=== PATIENT | female | born 1950 | race Caucasian/White ===

== ENCOUNTER 2018-12-28 06:38 | Inpatient (IN) ==
--- NOTE | 2018-11-29 10:36 | PAT Medication Instructions ---
Medication Instructions Date of Service November 29, 2018 Home Medications amoxicillin 2,000 mg PO NEEDED cholecalciferol (vitamin D3) [Vitamin D3] 5,000 unit PO QAM estradiol 1 mg PO QAM glucosamine-chondroitin [Osteo Bi-Flex] 1 tab PO QAM hydrochlorothiazide 12.5 mg PO QAM levothyroxine 50 mcg PO QAM naproxen sodium [Aleve] 220 mg PO BID NEEDED sumatriptan succinate 100 mg PO NEEDED tramadol 50 mg PO Q6H NEEDED Continue as directed amoxicillin 2,000 mg PO NEEDED ASK your surgeon for instructions naproxen sodium [Aleve] 220 mg PO BID NEEDED STOP taking 2 weeks before surgery glucosamine-chondroitin [Osteo Bi-Flex] 1 tab PO QAM DO NOT take the morning of surgery cholecalciferol (vitamin D3) [Vitamin D3] 5,000 unit PO QAM hydrochlorothiazide 12.5 mg PO QAM sumatriptan succinate 100 mg PO NEEDED estradiol 1 mg PO QAM Take morning of surgery With a small sip of water, OTHERWISE NOTHING TO EAT OR DRINK AFTER MIDNIGHT: levothyroxine 50 mcg PO QAM tramadol 50 mg PO Q6H NEEDED (if needed; stop 4 hours before surgery) Take evening before surgery tramadol 50 mg PO Q6H NEEDED (if needed) Other Notes If you have any questions please call us at [phone] or [phone] or [phone] or [phone]
--- NOTE | 2018-11-29 10:41 | Anesthesiology Consultation ---
Date of Service November 29, 2018 Assessment & Plan (1) Encounter for pre-operative examination: - No previous anesthesia records Chart Review Chart Review: Acceptable Risk for Surgery and Patient seen in Pre Admission Testing Consults Requested medical (Dr. Jeanmarie Hernádnez (12/08)) Patient was seen by PCPs office on 12/08 for preoperative evaluation. Per note from that visit, "Proceed with surgery." "Pt medically cleared." Teaching & Discussion Pre-Anesthesia Teaching/Discussion Notes: Instructed NPO after midnight before surgery, except medications with 15 cc of water. Medication instructions provided according to the PAT guidelines. History Surgery Operation Date: 12/28/18 12:40 Proposed Procedures p Left Total Hip Arthroplasty - Anthony Yap MD Height/Weight Height: 5 ft 1 in Weight: 60.4 kg Allergies Allergy/AdvReac Type Severity Reaction Status Date / Time omeprazole Allergy Intermediate ITCHING Verified 11/22/18 11:15 prochlorperazine Allergy Unknown JAW LOCKED Unverified 11/22/18 11:14 Medications Home Medications Medication Instructions Recorded Confirmed Last Taken amoxicillin 2,000 mg PO UD PRN 11/22/18 11/22/18 Unknown cholecalciferol (vitamin D3) 5,000 unit PO QAM 11/22/18 11/22/18 Unknown [Vitamin D3] estradiol 1 mg PO QAM 11/22/18 11/22/18 Unknown glucosamine-chondroitin [Osteo 1 tab PO QAM 11/22/18 11/22/18 Unknown Bi-Flex] hydrochlorothiazide 12.5 mg PO QAM 11/22/18 11/22/18 Unknown levothyroxine 50 mcg PO QAM 11/22/18 11/22/18 Unknown naproxen sodium [Aleve] 220 mg PO BID PRN 11/22/18 11/22/18 Unknown sumatriptan succinate 100 mg PO UD PRN 11/22/18 11/22/18 Unknown tramadol 50 mg PO Q6H PRN 11/22/18 11/22/18 Unknown Past Medical History Medical History Cataracts, bilateral Hearing deficit Hypothyroidism Migraine Osteoarthritis Exercise / Class Metabolic Activity II 4-5 Yardwork/Stairs/Walk up hill (Walks dog at least 1 mile per day. Otherwise limited due to knee pain. Able to climb stairs if needed. Denies CP or SOB with activity. ) Past Surgical History Surgical History H/O left knee surgery REMOVAL OF KNEE CAP History of cardiac cath 2003 NO STENTS History of section 1971&1974 History of colonoscopy History of tonsillectomy History of total hip arthroplasty RIGHT S/P RANDOLPH-BSO Past Anesthesia History No Hx of Anesthesia Complications and No Family Hx of Anesthesia Complications History of PONV No Hx of Motion Sickness and History of PONV (Did have nausea and vomiting the d ay after hip replacement (thought to be due to panic attack)) Social History Smoking Status: Never smoker Do You Dip or Chew Tobacco: No Hx Alcohol Use: Yes alcohol intake frequency: holidays/special occasions only Hx Substance Use: No substance use type: does not use Review of Systems Patient denies chest pain, shortness of breath, dyspnea on exertion, reflux, cough, wheezing, palpitations. +Joint Pain (Hips, Hands) Physical Exam Vital Signs BP: 151/81 P: 71 R: 18 T: 97.6 SPO2: 97% on RA ENMT Thyromental Distance: > or= 3.5 Finger Breadths (3.5) Mallampati Class: I Neck normal visual inspection and trachea midline; neck extension not limited Respiratory normal respiratory effort Auscultation: lungs clear to auscultation bilaterally Cardiovascular Rate/Rhythm: regular rate and regular rhythm Heart Sounds: no murmur Vessels: no carotid bruit Neurologic moves all extremities Psychiatric Orientation: alert and oriented x 3 Testing Laboratory Results 11/29/18 11:23 11/29/18 11:23 PT 10.5 Seconds (9.0-12.0) 11/29/18 11:23 INR 1.0 (0.9-1.1) 11/29/18 11:23 APTT 26.8 Seconds (21.0-31.0) 11/29/18 11:23 Hemoglobin A1c 5.5 % (4.5-5.6) 11/29/18 11:23 Urine Color Yellow 11/29/18 11:23 Urine Appearance Clear (Clear) 11/29/18 11:23 Urine pH 6.0 (4.5-7.5) 11/29/18 11:23 Ur Specific [place] 1.016 (1.000-1.030) 11/29/18 11:23 Urine Protein Negative (Negative) 11/29/18 11:23 Urine Glucose (UA) Negative (Negative) 11/29/18 11:23 Urine Ketones Negative (Negative) 11/29/18 11:23 Urine Nitrite Negative (Negative) 11/29/18 11:23 Ur Leukocyte Esterase Negative (Negative) 11/29/18 11:23 Blood Type O Positive 11/29/18 11:23 Antibody Screen NEGATIVE 11/29/18 11:23 Electrocardiogram Date: 11/29/18 Findings: + NSR @ (68) and + no change from (12/08/08) Chest X-Ray Date: 11/29/18 Findings: + NAD
--- NOTE | 2018-11-29 11:56 | XRay Report ---
XR chest Pre-admission PA/Lat CLINICAL HISTORY: Preoperative chest COMPARISON STUDY: No previous studies for comparison. FINDINGS: The cardiac and mediastinal contours are normal. There is no evidence of focal pulmonary co nsolidation. There is no evidence of failure. No pleural effusions are visualized.[ IMPRESSION: No active disease in the chest. Electronically signed by: Geovanni Weeks M.D. 11/29/2018 11:54 AM
[2018-11-29 12:38] LABS: Basophils # (auto) 0.03 K/uL (0-0.2); Basophils % (auto) 0.3 %; Eosinophils # (auto) 0.19 K/uL (0-0.5); Eosinophils % (auto) 2.1 %; Hematocrit (blood only) 38.8 % (37-47); Hemoglobin 13.4 g/dL (12.0-16.0); Immature Granulocytes # (auto) 0.02 K/uL (0.00-0.02); Immature Granulocytes % (auto) 0.2 %; Lymphocytes # (auto) 2.86 K/uL (1.2-3.4); Lymphocytes % (auto) 32.2 %; Mean Corpuscular Hgb Conc 34.5 g/dL (32-36); Mean Corpuscular Volume 89.6 fL (80-100); Mean Platelet Volume 10.1 fL (7.4-10.4); Monocytes # (auto) 0.53 K/uL (0.11-0.59); Neutrophils # (auto) 5.25 K/uL (1.4-6.5); Neutrophils % (auto) 59.2 %; Platelet Count 325 K/uL (130-400); RDW Coefficient of Variation 12.6 % (11.5-14.5); RDW Standard Deviation 41.2 fL (36.4-46.3); Red Blood Count 4.33 M/uL (4.2-5.4); White Blood Count 8.88 K/uL (4.8-10.8)
[2018-11-29 12:49] LABS: Partial Thromboplastin Time 26.8 Seconds (21.0-31.0); Prothrombin Time 10.5 Seconds (9.0-12.0)
[2018-11-29 13:04] LABS: Estimated Average Glucose 111 mg/dl; Hemoglobin A1C 5.5 % (4.5-5.6)
[2018-11-29 13:09] LABS: Appearance Urine Clear (Clear); Bilirubin Urine Negative (Negative); Blood Urine Negative (Negative); Color Urine Yellow; Glucose Urine UA Negative (Negative); Ketones Urine Negative (Negative); Leukocyte Esterase Urine Negative (Negative); Nitrite Urine Negative (Negative); Protein Urine Negative (Negative); Specific Gravity Urine 1.016 (1.000-1.030); Urobilinogen Urine Negative (Negative)
[2018-11-29 17:08] LABS: Albumin Level 3.6 gm/dl (3.4-5.0); BUN Creatinine Ratio 26.7 (10-20); Calcium 9.1 mg/dl (8.5-10.1); Est GFR (African American) 104.7; Est GFR (Non-African American) 90.3; Potassium 3.4 mmol/L (3.5-5.1)
--- NOTE | 2018-12-27 21:50 | History and Physical Report ---
DATE OF ADMISSION: 12/28/2018 CHIEF COMPLAINT: Chronic left hip pain. HISTORY OF PRESENT ILLNESS: This is a 68-year-old female patient of Dr. Yap'johnnie complaining of chronic left hip pain, longstanding, now progressively getting worse. The patient has failed conservative treatment including anti-inflammatories, tramadol, the use of a home exercise program and the use of a cane. She has been diagnosed with end-stage osteoarthritis per clinical and radiographic exams. She wished to proceed with a left total hip arthroplasty. PAST MEDICAL HISTORY: Hypothyroidism, osteoarthritis. SOCIAL HISTORY: Nonsmoker, nondrinker. PAST SURGICAL HISTORY: Right hip replacement, hysterectomy, left knee surgery, and tonsillectomy. FAMILY HISTORY: Noncontributory. REVIEW OF SYSTEMS: Chronic left hip pain. Otherwise, denies any shortness of breath, chest pain, nausea, vomiting or any other joint complaints. MEDICATIONS: 1. Synthroid 50 mcg daily. 2. Estradiol 1 mg daily. 3. Vitamin D3 5000 units daily. 4. Amoxicillin 500 mg before dental procedures. 5. Osteo Bi-Flex daily. 6. Sumatriptan 100 mg as needed. 7. Hydrochlorothiazide 12.5 mg daily. ALLERGIES: Include COMPAZINE. PHYSICAL EXAMINATION: GENERAL: Well-developed, well-nourished 68-year-old female in no acute distress. She is alert and oriented x3 and pleasant. HEENT: Normocephalic, atraumatic. Extraocular motions are intact. Pupils are equal and reactive to light. HEART: Regular rate and rhythm, no murmurs. LUNGS: Clear. ABDOMEN: Soft, nontender, bowel sounds present. EXTREMITIES: Left hip has pain with passive range of motion with log rolling and at 90 degrees of flexion. She has no hip flexion contracture. Her strength is 5/5 with pain. NEUROLOGIC: Neurovascularly, she is intact in her left lower extremity. DIAGNOSES: Left hip end-stage osteoarthritis with a history of hypothyroidism and osteoarthritis. PLAN: The patient was advised of her diagnosis. Indications, risks, benefits, postop course have all been reviewed. The patient wished to proceed with a left total hip arthroplasty. Necessary consent forms, preoperative testing and clearances will be obtained.
[~2018-12-28 06:38] MED LIST: ACETAMINOPHEN 500 MG TAB PO SCH; BUPIVACAINE 0.5 % 5 MG/1 ML PF 10ML VIAL ONE; CEFAZOLIN 1000MG 1,000 MG/7.5 ML SYR IV SCH; CeleBREX 200 MG CAP PO SCH; FAMOTIDINE 20 MG TAB PO SCH; GABAPENTIN 300 MG CAP PO SCH; LR 500ML BOLUS, THEN 15ML/HR IV SCH; METOCLOPRAMIDE HCL 10 MG TABLET PO SCH; ROPIVACAINE 0.5% HCL/PF 150 MG, BUPIVACAINE 0.5% MPF 30 ML, EPINEPHrine 30MG/30ML (OR U... INSTIL SCH; TRANEXAMIC ACID 1,000 MG **IV Intra-op IV SCH; TRANEXAMIC ACID 1,000 MG **IV Pre-op IV SCH; dexAMETHasone 4 MG TAB PO SCH
[2018-12-28] MEDS ORDERED: BACITRACIN INJ 50,000 UNIT VIAL ONE (06:59)
[2018-12-28] MEDS ORDERED: ORTHO JOINT ANESTHETIC ONE (06:59)
--- NOTE | 2018-12-28 07:13 | History & Physical Bridge Note ---
Date of Service December 28, 2018 History & Physical Bridge Note I have examined the patient, reviewed the History & Physical and in the interval since the performance of the History & Physical I have noted the following changes of clinical significance: no changes noted
[2018-12-28] MEDS ORDERED: ONDANSETRON INJ 2 MG/ML 2 ML VIAL ONE ×2 (07:16→08:37)
[2018-12-28] MEDS ORDERED: PROPOFOL IV EMULSION 10 MG/ML 20 ML VIAL IV ONE ×2 (07:16→10:57)
[2018-12-28] MEDS ORDERED: LIDOCAINE HCL 2% 2 ML VIAL/AMP(20MG/ML) INFIL ONE (07:16)
[2018-12-28] MEDS ORDERED: DEXAMETHASONE SOD INJ 4 MG/ML VIAL ONE (07:16)
[2018-12-28] MEDS ORDERED: MIDAZOLAM HCL 1 MG/ML 2ML VIAL ONE (07:17)
[2018-12-28] MEDS ORDERED: fentaNYL citrate 100 MCG/2 ML VIAL ONE (07:17)
[2018-12-28] MEDS ORDERED: HYDROmorphone INJ 1 MG/ML SYRINGE IV PRN (09:36)
[2018-12-28] MEDS ORDERED: FLUMAZENIL 0.1 MG/1 ML 10 ML VIAL IV PRN (09:36)
[2018-12-28] MEDS ORDERED: ATROPINE SULFATE 0.1 MG/ML 10ML SYR IV PRN (09:36)
[2018-12-28] MEDS ORDERED: ePHEDrine sulfate 50 MG/ML AMP IV PRN (09:36)
[2018-12-28] MEDS ORDERED: LABETALOL HCL IV 5 MG/ML 20ML IV PRN (09:36)
[2018-12-28] MEDS ORDERED: PROMETHAZINE HCL 12.5 MG in SODIUM CHLORIDE 0.9% 50 ML IV PRN (09:36)
[2018-12-28] MEDS ORDERED: NALOXONE HCL 0.4 MG/1 ML VIAL/CARP IV PRN ×2 (09:36→12:56)
[2018-12-28] MEDS ORDERED: ONDANSETRON INJ 2 MG/ML 2 ML VIAL IV PRN ×2 (09:36→12:56)
--- NOTE | 2018-12-28 11:29 | Operative Report ---
Post Operative Report Pre & Post Diagnosis Operation Date: 12/28/18 09:00 Pre-Op Diagnosis: Left Hip End-Stage Osteoarthritis Post-Op Diagnosis: Left Hip End-Stage Osteoarthritis, acetabular cysts, hypertrophic acetabular labral tear Procedure Operation Date: 12/28/18 09:00 Actual Procedures p Left Total Hip Arthroplasty(Left) - Anthony Yap MD Surgeon Anthony Yap MD C 40A Crew Chief Gal DEAN Estimated Blood Loss 100 Findings Consistent with Post-Op Diagnosis Specimens Femoral head Drains 2 Hemovac Anesthesia Type Spinal MAC Complications none Disposition Accompanied Patient To Recovery: No Disposition: Recovery Room Indications 68-year-old female with progressive osteoarthritis her left hip and failed conservative management. Radiograph symmetry she has progressive arthritis with joint space narrowing not completely [id number] but she has large cysts in the femoral head and the acetabulum and she is failed to manage pain with conservative management options. Patient had a prior right hip replacement in the past. Description of Procedure Patient taken to the operating room and anesthetized under spinal anesthesia and sedation. Patient was placed supine on the operating table. Exam of the involved extremity demonstrated she had flexion to about 100 degrees and some decreased range of motion with internal rotation and had moderate fat collection over the lateral hip..The patient was placed on a sacral pad and the involved leg was placed on a foot bump to flex knee 90 and hip 60. A Kothari-type approach was performed to the hip. A longitudinal lateral incision was made over the hip. The skin was incised sharply. The fat was divided down to the fascia. Subcutaneous bleeders are cauterized. Trochanteric bursa was resected. A split was made in the gluteus medius muscle between the anterior 40% and posterior 60%. The minimus was divided longitudinally reflected off the underly ing capsule. The capsule was incised down to the hip joint. An incision was made through the gluteus medius leaving a cuff of tendon for repair on the greater trochanter. The vastus lateralis was split longitudinally for about 3 cm. A muscular capsular flap was elevated off the hip. The hip was dislocated with use of bone hook and with flexion and external rotation of the hip. The femoral neck cut was made approximately 15 mm proximal to the lesser trochanter in neutral anteversion. Head and neck fragment were removed. The femoral head demonstrated mostly grade 3 osteoarthritis with smaller osteophytes. There was more articular thinning and wear in the superior head.. A self-retaining superior tractor was impacted into the ilium, a blunt Bessie retractor was placed anteriorly a double angled inferior retractor was placed on the ischium. The acetabulum demonstrated grade 4 degenerative arthritis with subchondral cysts and superior acetabulum and a large hypertrophic acetabular labrum with degenerative tearing. There was some posterior superior osteophytes.. The acetabular labrum was resected all osteophytes were resected.The soft tissue in the acetabular fossa was resected. An anterior capsular release was performed. Some the capsule was resected for exposure. The first reamer was used to medialize reaming to the inner table and then sequential reamers for the luigi tabulum were used in 2 mm increments up to a size 48. I used the Pinger total hip arthroplasty system using a PSL type cup. Trial reduction demonstrated a 48 millimeter cup was the appropriate size and fit. The placement of the final implant was performed after irrigating the acetabulum with antibiotic solution with pulsatile lavage. The position of the cup was approximately 15 anteversion 45 abduction. Good fixation was performed. Two 6.5 mm cancellus screws were placed in the posterior superior quadrant for further fixation through the cup. The acetabular liner was impacted into position. The Trident X3 0 degree polyethylene insert 36 mm inner diameter D acetabular liner was used.The Orthomix coctail injected into the capsule around the acetabular component and deeper muscles. The retractors removed and attention was taken to the femur. The femur was exposed with flexion external rotation. A Canal reamer was used followed by sequential tapered Accolade 2 broaches up to a size 3. This had a good fit and fill. Trial reduction was performed with a 132 degree neck angle based on preoperative templating. A -2.5 neck length gave equal leg lengths and stable range of motion through full flexion flexion adduction and internal rotation and extension and external rotation. The trials removed and after irrigation again and the final implant was impacted which was the Accolade 2 size three 132 degree neck angle. The Biolox ceramic head size 36-2.5 was used. After final implants replaced the reduction was noted to be stable. Betadine soak was used per protocol. 2 drains were placed deep. These were brought out laterally and connected to Hemovac. The minimus was closed with interrupted [id number] #1 Vicryl sutures and one transosseous #5 FiberWire Carlitos-Lc suture. The medius was closed with transosseous #5 FiberWire sutures using Carliots Lc suture technique. Lateral row soft tissue repair was performed with figure of 8 #2 FiberWire sutures. The medius split was closed with interrupted [id number] #1 Vicryl sutures. The vastus lateralis was closed with interrupted figure of eight #1Vicryl sutures. The fascia lai was closed with interrupted figure of eight #1 Vicryl sutures. The fat was closed with [id number] #2 Vicryl sutures. Skin was closed with heydi and sterile dressings were applied. The patient tolerated procedure well. Gal DEAN my physician casting assistant assisted me in the procedure with patient positioning And draping soft tissue retraction instrument management suture management and assisted in the outer layer closure and will participate in the postoperative care the patient. I attest to the content of the Intraoperative Record and any orders documented therein. Any exceptions are noted below.
--- NOTE | 2018-12-28 12:08 | Anesthesiology Progress Note ---
Date of Service December 28, 2018 Anesthesia Post Procedure Vital Signs Vital Signs: Temp Pulse Pulse Resp BP Pulse Ox 12/28/18 12:00 77 18 101/61 96 12/28/18 11:50 78 15 105/66 97 12/28/18 11:42 36.2 C L 79 14 102/67 97 12/28/18 07:08 36.4 C L 89 16 181/109 H 99 Pain Intensity Left Hip: Pain Intensity: 0 Transfer of Care Handoff Completed per policy Notes Mental Status: alert / awake / arousable Patient Amnestic to Procedure: Yes Nausea / Vomiting: adequately controlled Pain: adequately controlled Airway Patency, RR, SpO2: stable & adequate BP & HR: stable & adequate Hydration State: stable & adequate Neuraxial Anesthesia: was administered and sensory block is resolving Anesthetic Complications: no major complications apparent
--- NOTE | 2018-12-28 12:20 | XRay Report ---
XR hip 1V LT w pelvis CLINICAL HISTORY: IN PACU - A/P PELVIS and LATERAL HIP hip replacement COMPARISON: None. DISCUSSION: Anatomic alignment posttotal left hip arthroplasty. Pre-existing total right hip arthropl asty. Expected soft tissue postoperative change. IMPRESSION: Anatomic alignment posttotal left hip arthroplasty. The above report was generated using voice recognition software. It may contain grammatical, syntax or spelling errors. Electronically signed by: Albert Trevizo M.D. 12/28/2018 12:18 PM
[2018-12-28] MEDS ORDERED: ALUMINUM/MAGNESIUM SUSP 30 ML UDC PO PRN (12:56)
[2018-12-28] MEDS ORDERED: HYDROmorphone INJ 0.5 MG/0.5 ML SYR IV PRN (12:56)
[2018-12-28] MEDS ORDERED: BISACODYL 10 MG SUPP PR PRN (12:56)
[2018-12-28] MEDS ORDERED: SUMAtriptan succinate 100 MG TAB PO PRN (12:56)
[2018-12-28] MEDS ORDERED: DiphenhydrAMINE HCL 50 MG/ML VIAL IV PRN (12:56)
[2018-12-28] MEDS ORDERED: MAGNESIUM HYDROXIDE SUSP 30 ML UDC PO PRN (12:56)
[2018-12-28] MEDS ORDERED: SODIUM CHLORIDE 0.9% 1000ML 1,000 ML IV SCH (12:56)
[2018-12-28] MEDS ORDERED: METOCLOPRAMIDE HCL INJ 5 MG/ML 2 ML VIAL IV PRN (12:56)
--- NOTE | 2018-12-28 13:43 | Hospitalist Consultation ---
Date of Consultation December 28, 2018 Assessment & Plan (1) Status post total hip replacement, left: - Pain management and bowel regimen per primary team - PT/OT consults - plans for outpt [facility] - Follow am CBC and PRP to monitor for acute blood loss anemia and potassium as K+ was 3.4 on outpatient check prior to surgery. - IVF overnight, dc once pt is tolerating PO diet without difficulty - hold morning HCTZ and monitor BP Patient is unsure as to why she is actually on HCTZ yet has been on it for many years, possibly greater than 10 years. HerBP is typically in the 110s over 70s at baseline, and she checks it regularly. Her K+ was also slightly low upon preop check and is likely secondary to this med. Recommend ollow-up with her PCP regarding d/c of this medication. (2) Hypothyroidism: - Cont levothyroxine 50 mcg daily (3) Migraine: - Stable, continue sumatriptam succinate 100 mg prn (4) S/P hysterectomy: -Continue patient on estradiol 1 mg QAM, she recently started this medication per and reports that it helps significantly with irritability (5) DVT prophylaxis: - Teds, asa 81 mg BID Disposition: From home, discharge per primary team Thank you for involving us in the care of Mrs. Riggins. Please do not hesitate to call with questions or concerns. At this time medicine service will sign off. Supervising Physician Co-Signing Physician Notes I have seen the patient with Laurel Paredes and agree with exam , assessment and plan. History of Present Illness Reason for Consultation: medical management Requesting Physician: Dr. Yap Attending Physician: Anthony Yap MD History of Present Illness This is a 68 yo F with PMHx of HTN, osteoarthritis, migraines and hypothyroidism who underwent elective left total hip arthroplasty by Dr. Yap on 12/28/18. Pt is doing well. Her is present at bedside. Patient notes that pain in her left hip is minimal but coming back. She has good mobility in her feet bilaterally, denies any numbness but does have tingling down into the left foot. She was acutely nauseous after surgery and tea, this is improved after having Zofran. She has not yet attempted to eat anything solid. Patient reports she is going to use [facility] after discharge for outpatient therapy. She denies any other acute complaints. Allergies Allergy/AdvReac Type Severity Reaction Status Date / Time omeprazole Allergy Intermediate ITCHING Verified 12/28/18 07:02 prochlorperazine Allergy Unknown JAW LOCKED Unverified 12/28/18 07:02 Home Medications Home Medications Medication Instructions Recorded Confirmed Type amoxicillin 2,000 mg PO UD PRN 11/22/18 12/28/18 History cholecalciferol (vitamin D3) 5,000 unit PO QAM 11/22/18 12/28/18 History [Vitamin D3] estradiol 1 mg PO QAM 11/22/18 12/28/18 History glucosamine-chondroitin [Osteo 1 tab PO QAM 11/22/18 12/28/18 History Bi-Flex] hydrochlorothiazide 12.5 mg PO QAM 11/22/18 12/28/18 History levothyroxine 50 mcg PO QAM 11/22/18 12/28/18 History naproxen sodium [Aleve] 220 mg PO BID PRN 11/22/18 12/28/18 History sumatriptan succinate 100 mg PO UD PRN 11/22/18 12/28/18 History tramadol 50 mg PO Q6H PRN 11/22/18 12/28/18 History Patient History Medical History Migraine Hypothyroidism Hearing deficit Hypothyroidism Migraine Osteoarthritis Cataracts, bilateral Surgical History S/P hysterectomy Status post total hip replacement, left H/O left knee surgery REMOVAL OF KNEE CAP History of cardiac cath 2003 NO STENTS History of section 1971&1974 History of colonoscopy History of tonsillectomy History of total hip arthroplasty RIGHT S/P RANDOLPH-BSO Social History Preferred Language: Kinyarwanda Communication Ability: Effective Revenue Manager Required: No Beliefs That Will Affect Care: None Current Living Situation: Significant Other Other Information That Helps Us Care for You: No Feels Safe at Home: Yes Safety Concerns: Feels Safe At This Time Smoking Status: Never smoker Do You Dip or Chew Tobacco: No ; Second Hand Exposure: No ; Tobacco Cessation Education Requested by Patient: No Hx Alcohol Use: Yes Hx Substance Use: No Review of Systems Review of Systems: Constitutional: No fever, sweats or chills Eyes: No diplopia, no worsening or blurred vision ENT: normal hearing, no trouble swallowing Respiratory: No cough, sputum, dyspnea at rest or on exertion Cardiovascular: No chest pain, tightness or palpitations Abdomen: No pain, nausea, vomiting, diarrhea or constipation Musculoskeletal: + Left hip pain, minimal, no joint pain, calf pain, swelling Neurologic: No weakness, no numbness, + tingling which is slowly improving, no balance problems Psychiatric: No anxiety or depression Skin: No rash or itch Physical Exam Physical Exam: General: awake, alert, no apparent distress Head: Normocephalic, atraumatic ENT: PERRL, EOMI, no pharyngeal exudate, mucous membranes moist Chest: Clear to auscultation, on room air, no adventitious breath sounds Cardiac: Regular rate and rhythm, no murmur, no JVD, normal peripheral pulses, good capillary refill Abdominal: NABS x 4 quadrants, soft, nontender to palpation, no rebound, guarding or tenderness Extremities: + Left hip bandage C/D/I, + Hemovac drain in place, otherwise normal inspection, no peripheral edema or erythema, calfs nontender to palpation Psych: Normal mood and affect Neuro: AAO x 3, no grross motor deficits, speech is clear, no peripheral sensory deficits Skin: no rash or erythema Results & Data Vital Signs (Past 12 Hours) Vital Signs Temp Pulse Pulse Resp BP Pulse Ox 12/28/18 13:15 36.5 C 71 16 103/67 97 12/28/18 12:45 36.4 C L 75 16 103/68 98 12/28/18 12:35 36.2 C L 54 L 13 105/67 97 12/28/18 12:25 75 15 106/62 97 12/28/18 12:10 73 16 105/65 96 12/28/18 12:00 77 18 101/61 96 12/28/18 11:50 78 15 105/66 97 12/28/18 11:42 36.2 C L 79 14 102/67 97 12/28/18 07:08 36.4 C L 89 16 181/109 H 99 PG Care Time/CCT Total # of Minutes Spent Total Time Spent with Patient: Total time spent is greater than 50% in coordination of care (as documented) at patient's floor/unit and/or counseling patient:
[2018-12-28] MEDS: ACETAMINOPHEN 500 MG TAB PO SCH ×2 (13:44→20:26)
[2018-12-28] MEDS: CEFAZOLIN 1000MG 1,000 MG/7.5 ML SYR IV SCH (17:58)
[2018-12-28] MEDS: OXYCODONE HCL IR 5 MG TAB (IMMEDIATE RELEASE) PO PRN ×2 (17:58→22:16)
[2018-12-28] MEDS: SENNA 8.6 MG TAB PO SCH (20:25)
[2018-12-28] MEDS: DOCUSATE SODIUM 100 MG CAP PO SCH (20:25)
[2018-12-28] MEDS: ASPIRIN 81 MG ECTAB PO SCH (20:26)
[2018-12-29] MEDS: CEFAZOLIN 1000MG 1,000 MG/7.5 ML SYR IV SCH (02:34)
[2018-12-29] MEDS: OXYCODONE HCL IR 5 MG TAB (IMMEDIATE RELEASE) PO PRN ×3 (05:31→19:13)
[2018-12-29] MEDS: ACETAMINOPHEN 500 MG TAB PO SCH ×3 (06:36→20:30)
[2018-12-29] MEDS: LEVOTHYROXINE SODIUM 50 MCG TABLET PO SCH (06:37)
[2018-12-29] MEDS: CHOLECALCIFEROL 1,000 UNITS TAB PO SCH (08:05)
[2018-12-29] MEDS: MULTIVITAMIN TAB PO SCH (08:05)
[2018-12-29] MEDS: DOCUSATE SODIUM 100 MG CAP PO SCH ×2 (08:05→20:30)
[2018-12-29] MEDS: ASPIRIN 81 MG ECTAB PO SCH ×2 (08:05→20:31)
[2018-12-29 08:24] LABS: Basophils # (auto) 0.01 K/uL (0-0.2); Basophils % (auto) 0.1 %; Eosinophils # (auto) 0.01 K/uL (0-0.5); Eosinophils % (auto) 0.1 %; Hematocrit (blood only) 26.7 % (37-47); Hemoglobin 9.5 g/dL (12.0-16.0); Immature Granulocytes # (auto) 0.05 K/uL (0.00-0.02); Immature Granulocytes % (auto) 0.3 %; Lymphocytes # (auto) 2.82 K/uL (1.2-3.4); Lymphocytes % (auto) 15.6 %; Mean Corpuscular Hgb Conc 35.6 g/dL (32-36); Mean Corpuscular Volume 86.1 fL (80-100); Mean Platelet Volume 9.2 fL (7.4-10.4); Monocytes # (auto) 1.58 K/uL (0.11-0.59); Monocytes % (auto) 8.7 %; Neutrophils # (auto) 13.59 K/uL (1.4-6.5); Neutrophils % (auto) 75.2 %; Platelet Count 274 K/uL (130-400); RDW Coefficient of Variation 12.5 % (11.5-14.5); RDW Standard Deviation 39.3 fL (36.4-46.3); White Blood Count 18.06 K/uL (4.8-10.8)
--- NOTE | 2018-12-29 08:24 | Orthopedic Progress Note ---
Date of Service December 29, 2018 Assessment & Plan (1) Status post total hip replacement, left: POD #1, Left [facility] PT/ OT w precautions. DVT proph- ASA D/C planning Home w OPPT As per medicine. Subjective POD #1, Doing well. Denies SOB, CP, N/V. Pain controlled well. Plans for OPPT upon D/C. Physical Exam Physical Exam: Left hip prevena c/d/i, no drainage, no erythema. Drain in tact. Toes/ ankle mobile. No calf tenderness. A&Ox3. Results & Data Vital Signs (Past 12 Hours) Vital Signs Temp Pulse Resp BP Pulse Ox 12/29/18 03:01 36.4 C L 76 16 121/69 97 12/28/18 23:01 36.5 C 80 16 100/61 98
[2018-12-29 08:50] LABS: BUN Creatinine Ratio 14.6 (10-20); Calcium 8.1 mg/dl (8.5-10.1); Creatinine Clr Calc Pharmacy 60.6 ml/min; Est GFR (African American) 96.5; Est GFR (Non-African American) 83.2; Potassium 3.3 mmol/L (3.5-5.1)
[2018-12-29] MEDS ORDERED: hydroCHLOROthiazide 25 MG TAB PO SCH (09:00)
[2018-12-29] MEDS: ESTRADIOL 1 MG TAB PO SCH (09:03)
[2018-12-29] MEDS ORDERED: SODIUM CHLORIDE 0.9% 1000ML 500 ML IV ONE (15:17)
[2018-12-29] MEDS: SENNA 8.6 MG TAB PO SCH (20:30)
[2018-12-30] MEDS: OXYCODONE HCL IR 5 MG TAB (IMMEDIATE RELEASE) PO PRN ×6 (00:43→23:31)
[2018-12-30] MEDS: LEVOTHYROXINE SODIUM 50 MCG TABLET PO SCH (06:38)
[2018-12-30] MEDS: ACETAMINOPHEN 500 MG TAB PO SCH ×3 (06:38→19:43)
--- NOTE | 2018-12-30 08:03 | Orthopedic Progress Note ---
Date of Service December 30, 2018 Assessment & Plan (1) Status post total hip replacement, left: POD #2, Left [facility] PT/ OT w precautions. DVT proph- ASA D/C planning Home w HH when stable. As per medicine. Will monitor syncopal episodes, have medicine eval/ address K+. Encourage PT/ OT. Subjective POD #2, Doing well. Denies SOB, CP, N/V. Pain controlled well. Plans for OPPT upon D/C. K+ 3.3. Patient states she had 2 episodes of "fainting" yesterday with PT/ OT. BP systolic running btw 94 and 130, thus little PT. Physical Exam Physical Exam: Left hip prevena c/d/i, no erythema, no drainage, no calf tenderness, toes/ ankle mobile, A&Ox3. Results & Data Vital Signs (Past 12 Hours) Vital Signs Temp Pulse Resp BP Pulse Ox 12/29/18 22:20 36.5 C 99 H 16 133/66 98
[2018-12-30] MEDS: ESTRADIOL 1 MG TAB PO SCH (08:20)
[2018-12-30] MEDS: MULTIVITAMIN TAB PO SCH (08:20)
[2018-12-30] MEDS: ASPIRIN 81 MG ECTAB PO SCH ×2 (08:20→19:43)
[2018-12-30] MEDS: CHOLECALCIFEROL 1,000 UNITS TAB PO SCH (08:20)
[2018-12-30] MEDS ORDERED: POTASSIUM CHLORIDE 20 MEQ TABCR PO STA (08:21)
[2018-12-30] MEDS: DOCUSATE SODIUM 100 MG CAP PO SCH ×2 (08:21→19:42)
[2018-12-30] MEDS ORDERED: NSS + 20MEQ KCL 20 MEQ/1,000 ML BAG IV SCH (09:30)
[2018-12-30] MEDS ORDERED: POTASSIUM CHLORIDE 20 MEQ TABCR PO ONE (09:44)
[2018-12-30] MEDS ORDERED: POTASSIUM CHLORIDE 20 MEQ TABCR PO SCH (12:00)
--- NOTE | 2018-12-30 14:44 | Hospitalist Progress Note ---
Date of Service December 30, 2018 Assessment & Plan (1) Syncope: - Has had multiple episodes of dizziness/possible syncope over last 24 hours -- unclear etiology -- orthostatic hypotension vs. vasovagal response vs. cardiac. - Upgraded to telemetry for monitoring, in sinus tach with HR 100-120's. - Orthostatic vital signs negative; monitor qAM. - EKG was negative; will trend Trop q6hr -- first trop was elevated at 0.125. - Plan for TTE to evaluate for structural abnormality. - Consider cardiology consult if no improvement. - Holding home HCTZ; can likely d/c med, is not necessary at home. (2) Elevated troponin: - Initial trop was 0.125; will trend q6hr. - Cardiology consult if level continues to trend up. (3) Sinus tachycardia: - HR had been elevated, 100-120's. - Upgraded to tele; may be related to anxiety vs. dehydration vs. other. - Encouraged PO intake -- pt. is refusing IV access. - Cardiac work up pending. (4) Acute anemia: - Significant drop in hemoglobin, related to blood loss during procedure vs. other. - Will monitor CBC closely, repeat level at 5 pm. - Transfuse if hgb <8 in setting of syncope. (5) Status post total hip replacement, left: - S/p Left ANISHA on 12/28/18, POD#2. - Pain control per primary team. - DVT ppx with ASA 81 mg BID. - PT/OT evaluation -- pt. is not medically stable for discharge at this time. (6) Hypothyroidism: - Continue Synthroid 50 mcg daily. - TSH pending. (7) Migraine: - Stable, continue Sumatriptam succinate 100 mg prn (8) S/P hysterectomy: - Continue patient on estradiol 1 mg QAM, she recently started this medication per and reports that it helps significantly with irritability. (9) Electrolyte abnormality: - K level decreased in setting of HCTZ, replace as needed. - Can likely d/c HCTZ at discharge. (10) DVT prophylaxis: - Teds, ASA 81 mg BID Disposition: Pt. is not medically stable for discharge, will continue to follow. Please call with questions. Supervising Physician Co-Signing Physician Notes Attending Attestation - Chart reviewed, care plan d/w DIANNE Rivas. I agree w/ the russell components of her documentation. I agree with Ms Rivas's plans for tele status and additional work-up for near-syncope/syncope. Acute blood loss anemia - which is moderate-severe - may be contributing to this. Low threshold for transfusion. Jermain Cannon MD Subjective Pt. has had lightheadedness/possible syncopal episodes over the last 24 hours. First episode was yesterday during trip to the restroom; she developed diaphoresis, lightheadedness and sat on her bed. Pt. reports "blacking out"; BP was low following incident. She attempted to work with OT again in the afternoon and had a similar episode; pt. developed lightheadedness but symptoms improved after sitting down. She worked with PT this morning and had dizziness, slightly improved from yesterday. Orthostatics are negative. Pt. was upgraded to tele, has been in sinus tach. She denies dizziness/syncope at rest, chest pain, SOB, nausea/vomiting, headache, vision changes. Will complete echo, trop levels. Review of Systems Review of Systems: All systems reviewed & are unremarkable except as noted in HPI & below Constitutional: no fever, no chills, no fatigue, no weakness and no anorexia Respiratory: no cough, no dyspnea, no dyspnea on exertion and no wheezing Cardiovascular: + lightheadedness and + syncope; no chest pain, no palpitations and no edema Gastrointestinal: + constipation; no abdominal pain and no nausea Genitourinary: no difficulty urinating Musculoskeletal: no back pain and no joint pain Integumentary: no non-healing lesions Physical Exam Physical Exam: General: Resting comfortably HEENT: NC/AT; PERRLA with EOMI; [place] conjunctiva, MMM. No erythema of posterior pharynx Neck: Supple and nontender Cardiac: Tachy on exam, regular rhythm. Lungs: CTA bilaterally Abdomen: Bowel normoactive X 4; Nontender to palpation Extremities: Warm. No edema present Neuro: No focal weakness Skin: No rash Results & Data Vital Signs (Past 12 Hours) Vital Signs Temp Pulse Pulse Resp BP Pulse Ox 12/30/18 11:15 117 H 12/30/18 10:57 36.5 C 109 H 18 146/72 H 100 12/30/18 10:50 98 12/30/18 07:44 36.7 C 16 98 Laboratory Results 12/30/18 Range/Units 11:49 Troponin I 0.125 H* (0-0.045) ng/ml PG Care Time/CCT Total # of Minutes Spent Total Time Spent with Patient: Total time spent is greater than 50% in coordination of care (as documented) at patient's floor/unit and/or counseling patient:
[2018-12-30 17:09] LABS: Hematocrit (blood only) 25.1 % (37-47); Hemoglobin 8.6 g/dL (12.0-16.0); Mean Corpuscular Hgb Conc 34.3 g/dL (32-36); Mean Corpuscular Volume 88.1 fL (80-100); Mean Platelet Volume 9.7 fL (7.4-10.4); Platelet Count 268 K/uL (130-400); RDW Standard Deviation 42.1 fL (36.4-46.3); Red Blood Count 2.85 M/uL (4.2-5.4); White Blood Count 15.87 K/uL (4.8-10.8)
[2018-12-30 17:46] LABS: BUN Creatinine Ratio 18.7 (10-20); Calcium 8.4 mg/dl (8.5-10.1); Creatinine Clr Calc Pharmacy 77.4 ml/min; Est GFR (African American) 109.8; Est GFR (Non-African American) 94.7; Potassium 3.8 mmol/L (3.5-5.1); Troponin I 0.067 ng/ml (0-0.045)
[2018-12-30] MEDS: SENNA 8.6 MG TAB PO SCH (19:43)
[2018-12-31] MEDS: OXYCODONE HCL IR 5 MG TAB (IMMEDIATE RELEASE) PO PRN ×5 (03:34→23:52)
[2018-12-31 05:46] LABS: Hematocrit (blood only) 22.8 % (37-47); Hemoglobin 7.8 g/dL (12.0-16.0); Mean Corpuscular Hgb Conc 34.2 g/dL (32-36); Mean Corpuscular Volume 88.4 fL (80-100); Mean Platelet Volume 9.3 fL (7.4-10.4); Platelet Count 258 K/uL (130-400); RDW Coefficient of Variation 13.1 % (11.5-14.5); RDW Standard Deviation 42.4 fL (36.4-46.3); Red Blood Count 2.58 M/uL (4.2-5.4); White Blood Count 12.38 K/uL (4.8-10.8)
[2018-12-31 06:13] LABS: Albumin Level 2.4 gm/dl (3.4-5.0); BUN Creatinine Ratio 14.2 (10-20); Calcium 8.1 mg/dl (8.5-10.1); Creatinine Clr Calc Pharmacy 84.9 ml/min; Est GFR (African American) 112.4; Magnesium 1.9 mg/dl (1.8-2.4); Potassium 3.7 mmol/L (3.5-5.1)
[2018-12-31] MEDS: LEVOTHYROXINE SODIUM 50 MCG TABLET PO SCH (06:14)
[2018-12-31] MEDS: ACETAMINOPHEN 500 MG TAB PO SCH ×3 (06:14→22:04)
[2018-12-31 06:15] LABS: Albumin Globulin Ratio 0.8 (0.9-2); Bilirubin,Total 0.4 mg/dl (0.2-1); Globulin 3.2 gm/dl (2.5-4.0); Total Protein 5.6 gm/dl (6.4-8.2)
[2018-12-31] MEDS: ASPIRIN 81 MG ECTAB PO SCH ×2 (07:47→20:28)
[2018-12-31] MEDS: ESTRADIOL 1 MG TAB PO SCH (07:47)
[2018-12-31] MEDS: CHOLECALCIFEROL 1,000 UNITS TAB PO SCH (07:47)
[2018-12-31] MEDS: DOCUSATE SODIUM 100 MG CAP PO SCH ×2 (07:48→20:31)
[2018-12-31] MEDS: MULTIVITAMIN TAB PO SCH (07:48)
[2018-12-31] MEDS ORDERED: SODIUM CHLORIDE 0.9% 250 ML IV PRN (07:52)
[2018-12-31] MEDS ORDERED: POLYETHYLENE (MIRALAX) 17 GM PACK PO PRN (11:11)
--- NOTE | 2018-12-31 11:38 | Hospitalist Progress Note ---
Date of Service December 31, 2018 Assessment & Plan (1) Syncope: - Has had multiple episodes of dizziness/possible syncope on 12/29 -- vasovagal response vs. anemia related. Still has mild dizziness, no further episodes of syncope. - In NSR on monitor; mild sinus tachycardia with exertion, HR 110-120's. - Orthostatic vital signs negative. - EKG was negative; Trop was increased to 0.125 then trended down. - TTE negative for structural abnormality. - Holding home HCTZ; can likely d/c med, is not necessary at home as BP has been stable off anti-hypertensives. - Significant anemia post op -- will transfuse 2 units pRBCs; expect improvement in symptoms with transfusion support. (2) Elevated troponin: - Initial trop was 0.125 then trended down. - Likely demand ischemia in setting of significant post op anemia. - No indication for cardiology consult. (3) Sinus tachycardia: - Now improved; rate controlled with NSR at rest, HR 110-120's with exertion. - Likely multi-factorial related to anemia vs. anxiety vs. dehydration. - Encouraged PO intake; also transfusing 2 units pRBCs. (4) Acute anemia: - Significant drop in hemoglobin, related to blood loss during procedure vs. unknown source of bleeding. - Hgb was 7.8 this morning, baseline 13.0. - Will transfuse 2 units PRBCs; monitor post transfusion H/H. - FOBT pending collection; will likely be negative. (5) Status post total hip replacement, left: - S/p Left ANISHA on 12/28/18, POD#3. - Pain control per primary team. - DVT ppx with ASA 81 mg BID. - PT/OT evaluation -- discharge to home once medically stable. (6) Hypothyroidism: - Continue Synthroid 50 mcg daily. - TSH was 3.370. (7) Migraine: - Stable, continue Sumatriptam succinate 100 mg prn (8) S/P hysterectomy: - Continue patient on estradiol 1 mg QAM, she recently started this medication per and reports that it helps significantly with irritability. (9) Electrolyte abnormality: - K level decreased in setting of HCTZ, replace as needed. - Can likely d/c HCTZ at discharge. (10) DVT prophylaxis: - Teds, ASA 81 mg BID Disposition: Will continue to follow; would monitor patient for another 24 hours to ensure H/H is stable. Discharge to home likely on 01/01. Subjective Pt. is very anxious overall. She states she continues to have dizziness/shakiness with movemetn, such as walking to the bedside commode. Has not had any further episodes of syncope. Denies chest pain, SOB, nausea/vomiting. Has not had a BM, is passing gas. H/H significantly decreased from baseline, will transfuse 2 units pRBCs and evaluate for improvement in symptoms. Review of Systems Review of Systems: All systems reviewed & are unremarkable except as noted in HPI & below Constitutional: + fatigue and + weakness; no fever, no chills and no anorexia Respiratory: no cough, no dyspnea, no dyspnea on exertion and no wheezing Cardiovascular: + lightheadedness; no chest pain, no palpitations, no syncope and no edema Gastrointestinal: + constipation; no abdominal pain, no nausea and no vomiting Genitourinary: no difficulty urinating Musculoskeletal: no back pain and no joint pain Integumentary: no non-healing lesions Neurologic: + dizziness Physical Exam Physical Exam: General: Resting comfortably, appears mildly anxious HEENT: NC/AT; PERRLA with EOMI; [place] conjunctiva, MMM. No erythema of posterior pharynx Neck: Supple and nontender Cardiac: RRR Lungs: CTA bilaterally Abdomen: Bowel normoactive X 4; Nontender to palpation Extremities: Warm. No edema present Neuro: No focal weakness Skin: No rash Results & Data Vital Signs (Past 12 Hours) Vital Signs Temp Pulse Pulse Resp BP BP Pulse Ox 12/31/18 10:36 115 H 12/31/18 10:27 36.6 C 84 16 126/72 97 12/31/18 09:57 36.6 C 80 16 121/71 98 12/31/18 09:42 36.5 C 83 17 127/67 99 12/31/18 09:35 95 H 12/31/18 09:27 36.5 C 92 H 16 126/81 98 12/31/18 06:31 36.6 C 86 18 113/66 98 12/31/18 02:33 36.5 C 18 97 12/31/18 00:00 92 H 12/30/18 23:39 36.8 C 96 H 19 128/69 96 Laboratory Results 12/31/18 12/31/18 12/31/18 Range/Units 08:02 05:21 05:21 WBC 12.38 H (4.8-10.8) K/uL RBC 2.58 L (4.2-5.4) M/uL Hgb 7.8 L (12.0-16.0) g/dL Hct 22.8 L (37-47) % MCV 88.4 (80-100) fL MCH 30.2 (25-34) pg MCHC 34.2 (32-36) g/dL RDW Std Deviation 42.4 (36.4-46.3) fL RDW Coeff of Fiordaliza 13.1 (11.5-14.5) % Plt Count 258 (130-400) K/uL MPV 9.3 (7.4-10.4) fL Sodium 140 (136-145) mmol/L Potassium 3.7 (3.5-5.1) mmol/L Chloride 107 (98-107) mmol/L Carbon Dioxide 29 (21-32) mmol/L Anion Gap 4.0 (3-11) BUN 8 (7-18) mg/dl Creatinine 0.54 L (0.6-1.2) mg/dl Est Cr Clr Drug Dosing 84.9 ml/min Est GFR ( Amer) 112.4 Est GFR (Non-Af Amer) 97.0 BUN/Creatinine Ratio 14.2 (10-20) Glucose 99 (70-99) mg/dl Calcium 8.1 L (8.5-10.1) mg/dl Magnesium 1.9 (1.8-2.4) mg/dl Total Bilirubin 0.4 (0.2-1) mg/dl AST 26 (15-37) U/L ALT 17 (12-78) U/L Alkaline Phosphatase 61 (45-117) U/L Troponin I (0-0.045) ng/ml Total Protein 5.6 L (6.4-8.2) gm/dl Albumin 2.4 L (3.4-5.0) gm/dl Globulin 3.2 (2.5-4.0) gm/dl Albumin/Globulin Ratio 0.8 L (0.9-2) TSH (0.300-4.500) uIu/ml Blood Type O Positive Antibody Screen NEGATIVE Crossmatch See Detail 12/30/18 12/30/1812/30/19 Range/Units 23:01 16:49 16:49 WBC 15.87 H (4.8-10.8) K/uL RBC 2.85 L (4.2-5.4) M/uL Hgb 8.6 L (12.0-16.0) g/dL Hct 25.1 L (37-47) % MCV 88.1 (80-100) fL MCH 30.2 (25-34) pg MCHC 34.3 (32-36) g/dL RDW Std Deviation 42.1 (36.4-46.3) fL RDW Coeff of Fiordaliza 13.0 (11.5-14.5) % Plt Count 268 (130-400) K/uL MPV 9.7 (7.4-10.4) fL Sodium 138 (136-145) mmol/L Potassium 3.8 D (3.5-5.1) mmol/L Chloride 104 (98-107) mmol/L Carbon Dioxide 29 (21-32) mmol/L Anion Gap 5.0 (3-11) BUN 11 (7-18) mg/dl Creatinine 0.58 L (0.6-1.2) mg/dl Est Cr Clr Drug Dosing 77.4 ml/min Est GFR ( Amer) 109.8 Est GFR (Non-Af Amer) 94.7 BUN/Creatinine Ratio 18.7 (10-20) Glucose 117 H (70-99) mg/dl Calcium 8.4 L (8.5-10.1) mg/dl Magnesium (1.8-2.4) mg/dl Total Bilirubin (0.2-1) mg/dl AST (15-37) U/L ALT (12-78) U/L Alkaline Phosphatase (45-117) U/L Troponin I 0.050 H* 0.067 H* (0-0.045) ng/ml Total Protein (6.4-8.2) gm/dl Albumin (3.4-5.0) gm/dl Globulin (2.5-4.0) gm/dl Albumin/Globulin Ratio (0.9-2) TSH 3.370 (0.300-4.500) uIu/ml Blood Type Antibody Screen Crossmatch 12/30/18 Range/Units 11:49 WBC (4.8-10.8) K/uL RBC (4.2-5.4) M/uL Hgb (12.0-16.0) g/dL Hct (37-47) % MCV (80-100) fL MCH (25-34) pg MCHC (32-36) g/dL RDW Std Deviation (36.4-46.3) fL RDW Coeff of Fiordaliza (11.5-14.5) % Plt Count (130-400) K/uL MPV (7.4-10.4) fL Sodium (136-145) mmol/L Potassium (3.5-5.1) mmol/L Chloride (98-107) mmol/L Carbon Dioxide (21-32) mmol/L Anion Gap (3-11) BUN (7-18) mg/dl Creatinine (0.6-1.2) mg/dl Est Cr Clr Drug Dosing ml/min Est GFR ( Amer) Est GFR (Non-Af Amer) BUN/Creatinine Ratio (10-20) Glucose (70-99) mg/dl Calcium (8.5-10.1) mg/dl Magnesium (1.8-2.4) mg/dl Total Bilirubin (0.2-1) mg/dl AST (15-37) U/L ALT (12-78) U/L Alkaline Phosphatase (45-117) U/L Troponin I 0.125 H* (0-0.045) ng/ml Total Protein (6.4-8.2) gm/dl Albumin (3.4-5.0) gm/dl Globulin (2.5-4.0) gm/dl Albumin/Globulin Ratio (0.9-2) TSH (0.300-4.500) uIu/ml Blood Type Antibody Screen Crossmatch PG Care Time/CCT Total # of Minutes Spent Total Time Spent with Patient: Total time spent is greater than 50% in coordination of care (as documented) at patient's floor/unit and/or counseling patient:
--- NOTE | 2018-12-31 12:26 | Orthopedic Progress Note ---
Date of Service December 31, 2018 Assessment & Plan (1) Status post total hip replacement, left: POD #3, Left ANISHA PT/ OT w precautions. DVT proph- ASA D/C planning Home w HH when stable. As per medicine. Transfusing 2 units today, hopefully this will make her feel better Encourage PT/ OT. Subjective POD #, Denies SOB, CP, N/V.Pain controlled well today. She notes she has fainted multiple times and dizziness Physical Exam Physical Exam: Toes mobile, NVI. Calves soft, non tender. Dressing in place. Results & Data Vital Signs (Past 12 Hours) Vital Signs Temp Pulse Pulse Resp BP BP Pulse Ox 12/31/18 11:27 36.6 C 88 17 145/77 H 97 12/31/18 10:36 115 H 12/31/18 10:27 36.6 C 84 16 126/72 97 12/31/18 09:57 36.6 C 80 16 121/71 98 12/31/18 09:42 36.5 C 83 17 127/67 99 12/31/18 09:35 95 H 12/31/18 09:27 36.5 C 92 H 16 126/81 98 12/31/18 06:31 36.6 C 86 18 113/66 98 12/31/18 02:33 36.5 C 18 97
[2018-12-31 18:21] LABS: Hematocrit (blood only) 32.8 % (37-47); Hemoglobin 11.2 g/dL (12.0-16.0)
[2018-12-31] MEDS: SENNA 8.6 MG TAB PO SCH (20:29)
[2019-01-01] MEDS: ACETAMINOPHEN 500 MG TAB PO SCH ×3 (05:42→21:48)
[2019-01-01] MEDS: LEVOTHYROXINE SODIUM 50 MCG TABLET PO SCH (05:42)
[2019-01-01] MEDS: OXYCODONE HCL IR 5 MG TAB (IMMEDIATE RELEASE) PO PRN ×5 (05:42→22:38)
[2019-01-01 06:13] LABS: Hematocrit (blood only) 30.4 % (37-47); Hemoglobin 10.4 g/dL (12.0-16.0); Mean Corpuscular Hgb Conc 34.2 g/dL (32-36); Mean Corpuscular Volume 89.7 fL (80-100); Mean Platelet Volume 9.6 fL (7.4-10.4); Platelet Count 264 K/uL (130-400); RDW Coefficient of Variation 13.5 % (11.5-14.5); RDW Standard Deviation 44.3 fL (36.4-46.3); Red Blood Count 3.39 M/uL (4.2-5.4); White Blood Count 10.49 K/uL (4.8-10.8)
[2019-01-01 06:49] LABS: BUN Creatinine Ratio 14.1 (10-20); Calcium 8.1 mg/dl (8.5-10.1); Creatinine Clr Calc Pharmacy 81.8 ml/min; Est GFR (Non-African American) 95.8; Potassium 4.1 mmol/L (3.5-5.1)
[2019-01-01] MEDS: ESTRADIOL 1 MG TAB PO SCH (09:21)
[2019-01-01] MEDS: ASPIRIN 81 MG ECTAB PO SCH ×2 (09:21→21:48)
[2019-01-01] MEDS: CHOLECALCIFEROL 1,000 UNITS TAB PO SCH (09:21)
[2019-01-01] MEDS: MULTIVITAMIN TAB PO SCH (09:21)
[2019-01-01] MEDS: DOCUSATE SODIUM 100 MG CAP PO SCH ×2 (09:35→21:47)
--- NOTE | 2019-01-01 10:05 | Orthopedic Progress Note ---
Date of Service January 01, 2019 Assessment & Plan (1) Status post total hip replacement, left: POD #4, Left ANISHA PT/ OT w precautions. DVT proph- ASA D/C planning Home w HH when stable. As per medicine. Transfusing 2 units yesterday- feels better. able to get up and walk in the room without symptoms Encourage PT/ OT. Subjective POD # 4, Denies SOB, CP, N/V.Pain controlled well today. She notes she has fainted multiple times and dizziness, overall this has improved since the blood transfusion. No dizziness up and walking in the room without any symptoms Physical Exam Physical Exam: Toes mobile, NVI. Calves soft, non tender. Dressing in place to left hip. Some mild swelling Results & Data Vital Signs (Past 12 Hours) Vital Signs Temp Pulse Pulse Resp BP Pulse Ox 01/01/19 07:45 36.5 C 80 16 135/83 99 01/01/19 03:55 36.5 C 91 H 18 138/73 98 01/01/19 00:00 92 H 12/31/18 23:37 36.7 C 92 H 20 152/85 H 96
--- NOTE | 2019-01-01 12:06 | Hospitalist Progress Note ---
Date of Service January 01, 2019 Assessment & Plan (1) Syncope: - Has had multiple episodes of dizziness/possible syncope on 12/29 -- vasovagal response vs. anemia related. Dizziness resolved. No further episodes of syncope. - In NSR on monitor; HR 80s overnight - Orthostatic vital signs negative. - EKG was negative; Trop was increased to 0.125 then trended down. - TTE negative for structural abnormality. - Holding home HCTZ. BPs trending up again. BP today of 152/82. Continue to erik tor. May need to resume HCTZ. - Significant anemia post op -- transfused 2 units pRBCs yesterday. H&H improved to 10.4 and 30.4 this morning. Continue to monitor. Repeat in AM. - Stable from cardiac standpoint. Will transfer to [facility]. - D/c home tomorrow if stable. (2) Elevated troponin: - Initial trop was 0.125 then trended down. - Likely demand ischemia in setting of significant post op anemia. - No indication for cardiology consult. (3) Sinus tachycardia: - Now improved; rate controlled with NSR at rest, HR 110-120's with exertion. - Likely multi-factorial related to anemia vs. anxiety vs. dehydration. - Encouraged PO intake; 2 units pRBCs transfused. (4) Acute anemia: - Significant drop in hemoglobin, related to blood loss during procedure vs. unknown source of bleeding. - Hgb improved to 10.4 this morning status post 2 units PRBCs yesterday, baseline 13.0. -Continue to monitor H&H - FOBT negative (5) Status post total hip replacement, left: - S/p Left ANISHA on 12/28/18, POD#4. - Pain control per primary team. - DVT ppx with ASA 81 mg BID. - PT/OT evaluation -- discharge to home once medically stable. (6) Hypothyroidism: - Continue Synthroid 50 mcg daily. - TSH was 3.370. (7) Migraine: - Stable, continue Sumatriptam succinate 100 mg prn (8) S/P hysterectomy: - Continue patient on estradiol 1 mg QAM, she recently started this medication per and reports that it helps significantly with irritability. (9) Electrolyte abnormality: - K level decreased in setting of HCTZ; stable at 4.1 this AM. - Consider d/c HCTZ at discharge. (10) DVT prophylaxis: - Teds, ASA 81 mg BID Disposition: Will continue to follow; would monitor patient for another 24 hours to ensure H/H is stable. Discharge to home likely on 01/02. Subjective 68-year-old female admitted status post total hip arthroplasty on December 28, 2018. Unfortunately patient experienced syncopal episodes on December 29, 2018, POD #1 and was noted to be anemic. She is status post transfusion of 2 PRBCs yesterday. States she is feeling much better this morning. Denies any dizziness or syncopal episodes since yesterday. Stool occult noted to be negative. H&H this morning is stable at 10.4 and 30.4. Patient is planning for DC home with home PT once stable. Review of Systems Constitutional: no fever and no chills Eyes: no worsening vision Ear, Nose, Mouth, Throat: no dizziness Respiratory: no dyspnea Cardiovascular: no chest pain Gastrointestinal: no abdominal pain, no nausea and no vomiting Genitourinary: no dysuria and no hematuria Psychiatric: no confusion Physical Exam Physical Exam: Temp Pulse Resp BP Pulse Ox 36.4 C L 87 16 152/82 H 98 01/01/19 11:15 01/01/19 11:15 01/01/19 11:15 01/01/19 11:15 01/01/19 11:15 Patient is afebrile. She is hypertensive to 152/82, but is asymptomatic. Constitutional: average body habitus; no acute distress Neck: normal visual inspection Respiratory: normal respiratory effort, lungs clear to auscultation no respiratory distress Cardiovascular: RRR, no murmur, no edema Gastrointestinal (Abdomen): Inspection/Auscultation: normal bowel sounds Percussion/Palpation: abdomen soft; abdomen nontender Psychiatric: A+Ox3, euthymic affect Results & Data Vital Signs (Past 12 Hours) Vital Signs Temp Pulse Resp BP BP Pulse Ox 01/01/19 11:15 36.4 C L 87 16 152/82 H 98 01/01/19 07:45 36.5 C 80 16 135/83 99 01/01/19 03:55 36.5 C 91 H 18 138/73 98 PG Care Time/CCT Total # of Minutes Spent Total Time Spent with Patient: Total time spent is greater than 50% in coordination of care (as documented) at patient's floor/unit and/or counseling patient:
[2019-01-01] MEDS: SENNA 8.6 MG TAB PO SCH (21:47)
[2019-01-02] MEDS: OXYCODONE HCL IR 5 MG TAB (IMMEDIATE RELEASE) PO PRN ×2 (02:46→07:00)
[2019-01-02 05:38] LABS: Basophils # (auto) 0.02 K/uL (0-0.2); Basophils % (auto) 0.2 %; Eosinophils # (auto) 0.57 K/uL (0-0.5); Eosinophils % (auto) 6.5 %; Hematocrit (blood only) 32.1 % (37-47); Immature Granulocytes # (auto) 0.03 K/uL (0.00-0.02); Immature Granulocytes % (auto) 0.3 %; Lymphocytes # (auto) 2.34 K/uL (1.2-3.4); Lymphocytes % (auto) 26.6 %; Mean Corpuscular Hgb Conc 34.3 g/dL (32-36); Mean Corpuscular Volume 90.2 fL (80-100); Mean Platelet Volume 9.4 fL (7.4-10.4); Monocytes # (auto) 0.79 K/uL (0.11-0.59); Neutrophils # (auto) 5.05 K/uL (1.4-6.5); Neutrophils % (auto) 57.4 %; Platelet Count 311 K/uL (130-400); RDW Coefficient of Variation 13.4 % (11.5-14.5); RDW Standard Deviation 43.9 fL (36.4-46.3); Red Blood Count 3.56 M/uL (4.2-5.4)
[2019-01-02 06:03] LABS: BUN Creatinine Ratio 17.3 (10-20); Calcium 8.2 mg/dl (8.5-10.1); Creatinine Clr Calc Pharmacy 81.8 ml/min; Est GFR (Non-African American) 95.8; Potassium 3.7 mmol/L (3.5-5.1)
[2019-01-02] MEDS: ACETAMINOPHEN 500 MG TAB PO SCH (07:00)
[2019-01-02] MEDS: LEVOTHYROXINE SODIUM 50 MCG TABLET PO SCH (07:00)
[2019-01-02] MEDS: MULTIVITAMIN TAB PO SCH (07:43)
[2019-01-02] MEDS: ASPIRIN 81 MG ECTAB PO SCH (07:43)
[2019-01-02] MEDS: ESTRADIOL 1 MG TAB PO SCH (07:43)
[2019-01-02] MEDS: CHOLECALCIFEROL 1,000 UNITS TAB PO SCH (07:44)
[2019-01-02] MEDS: DOCUSATE SODIUM 100 MG CAP PO SCH (09:38)
--- NOTE | 2019-01-02 09:38 | Orthopedic Progress Note ---
Date of Service January 02, 2019 Assessment & Plan (1) Status post total hip replacement, left: POD #5, Left ANISHA PT/ OT w precautions. DVT proph- ASA D/C planning Home w HH today. As per medicine. Labs and vitals stable, patient asymptomatic. Cleared from medicine stand point to be Discharged home today with HH. Encourage PT/ OT. Subjective 68-year-old female admitted status post total hip arthroplasty on December 28, 2018. Unfortunately patient experienced syncopal episodes on December 29, 2018, POD #1 and was noted to be anemic. She is status post transfusion of 2 PRBCs States she is feeling much better this morning. Denies any dizziness or syncopal episodes. Stool occult noted to be negative. Hgb stable at 11.0. Patient is planning for DC home with home PT once stable. Physical Exam Physical Exam: Left hip prevena c/d/i, no drainage, no erythema, toes and ankle mobile. No calf tenderness, A&Ox3. Results & Data Vital Signs (Past 12 Hours) Vital Signs Temp Pulse Resp BP Pulse Ox 01/02/19 06:38 36.6 C 81 18 128/75 97 01/01/19 23:31 36.7 C 79 18 138/81 97
--- NOTE | 2019-01-02 11:42 | Hospitalist Progress Note ---
Date of Service January 02, 2019 Assessment & Plan (1) Syncope: - Had multiple episodes on 12/29 likely anemia related but maybe some component of vasovagal; resolved with tranfusion and no dizziness noted today - Vitals remain stable; EKG negative for ischemic changes and mild elevation of troponin which trended down and likely demand due to anemia - HCTZ was held due to BP issues and could be resumed as electrolytes are stable and vital signs acceptable; can be resumed for home use as likely not the cause of the syncope but BP should be routinely monitored; resumption may help with some fluid accumulation which may be caused by blood product administration and post-operative fluid accumulation Present on Admission?: No (2) Acute anemia: - Likely acute blood loss anemia from surgical losses; FOBT negative - Hemoglobin remains stable at 11 and S/P 2 units PRBCs; baseline around 13 Present on Admission?: Yes (3) Elevated troponin: - Troponin peaked and trended down and likely demand ischemia for post- operative anemia - No further cardiac intervention necessary at this current time Present on Admission?: Yes (4) Sinus tachycardia: - RESOLVED; likely multifactorial between anemia vs stress vs pain Present on Admission?: No (5) Status post total hip replacement, left: - S/P L ANISHA on 12/28 - Pain control; DVT prophylaxis ASA 81 mg BID - PT/OT - planning on D/C home with home services; no medical contraindication for D/C today Present on Admission?: Yes (6) Hypothyroidism: - Synthroid 50 mcg daily - TSH was 3.370. Present on Admission?: Yes (7) Migraine: - STABLE; Sumatriptam succinate 100 mg PRN (8) S/P hysterectomy: - Estradiol 1 mg daily Present on Admission?: Yes (9) DVT prophylaxis: - ASA 81 mg BID Disposition: Medically suitable for D/C home; discussed with orthopedics team Subjective Reports feeling well today. No further syncopal episodes or feeling dizzy. States her symptoms improved after receiving a blood transfusion. Has some L knee edema but denies pain. Some pain at surgical site with movement but doing better. Denies any new complaints at this time Review of Systems Constitutional: no fever and no chills Eyes: no worsening vision Ear, Nose, Mouth, Throat: no nasal congestion and no sore throat Respiratory: no cough and no dyspnea Cardiovascular: no chest pain, no lightheadedness and no syncope Gastrointestinal: no abdominal pain, no nausea, no vomiting, no constipation and no diarrhea/loose stools Genitourinary: no dysuria Musculoskeletal: + joint pain (L hip) and + swelling (L knee) Integumentary: no rash Physical Exam Constitutional: WD/WN, vitals as above Eyes: + anicteric sclerae ENMT: Ears: no hearing impairment Neck: normal visual inspection and trachea midline Respiratory: normal respiratory effort, lungs clear to auscultation Cardiovascular: RRR, no murmur, no edema Gastrointestinal (Abdomen): Inspection/Auscultation: normal bowel sounds Percussion/Palpation: abdomen soft; abdomen nontender Musculoskeletal: Head/Neck/Chest: normocephalic and head atraumatic wound vac placed to L hip with surrounding skin without erythema; fluctuant edema to L knee without warmth or erythema Skin: no rashes, warm and dry Neurologic: moves all extremities Psychiatric: A+Ox3, euthymic affect Results & Data Vital Signs (Past 12 Hours) Vital Signs Temp Pulse Pulse Resp BP BP Pulse Ox 01/02/19 09:48 36.6 C 81 90 18 148/88 H 128/75 97 01/02/19 06:38 36.6 C 81 18 128/75 97 PG Care Time/CCT Total # of Minutes Spent Total Time Spent with Patient: Total time spent is greater than 50% in coordination of care (as documented) at patient's floor/unit and/or counseling patient:
--- NOTE | 2019-01-03 20:49 | Discharge Summary ---
DATE OF ADMISSION: 12/28/2018 DATE OF DISCHARGE: 01/02/2019 DISCHARGE DIAGNOSIS: Degenerative joint disease, left hip. SECONDARY DIAGNOSES: Migraine headaches, hypothyroidism, hearing deficit, acute blood loss anemia. CONSULTS: Laurel Paredes PA-C, Dr. Ramires. COMPLICATIONS: Question of syncopal episode and tachycardia, 12/30/2018. PROCEDURES: Left total hip arthroplasty performed by Dr. Yap on 12/28/2018. BRIEF HISTORY: As dictated in history and physical. HOSPITAL SUMMARY: The patient was admitted on the above-noted date and had the surgery performed, which she tolerated well. Postoperatively, [facility] hospitalist service was consulted for medical management during the patient's stay. On the patient's first postoperative day, she was doing well, denied shortness of breath, chest pain or nausea, vomiting. Pain was controlled and she was planning for outpatient PT upon discharge. Her left hip Prevena dressing was clean, dry and intact. No drainage, no erythema. Drain was intact. Toes and ankle were mobile. No calf tenderness and she was alert and oriented x3. Vital signs were stable. She was afebrile and she was started on PT and OT protocols, DVT prophylaxis and pain management. Hemoglobin was 9.5, white cell count was 18,000, likely secondary to surgical stress and preoperative steroids. By the second postoperative day, she was doing well and had no complaints. Pain was controlled. Plans for outpatient PT. Potassium was 3.3. The patient did state that she had 2 episodes of fainting the previous evening with PT, OT, systolic BP was running between 94 and 130. Her Prevena remained intact. She had no erythema, no drainage, no calf tenderness. Toes and ankle were mobile. Hemoglobin was 8.6 and white count was trending down. Plans were for the patient to be discharged; however, she continued to have these fainting/syncopal episodes. She was seen by Tracy Ortega PA-C and after reviewing her vital signs and lab work, etc., the patient was then transferred down to telemetry for monitoring. She was in sinus tachycardia with heart rate were from 100 to 120s. Her orthostatic vital signs were negative and plans were to monitor q.a.m. EKG was negative. Troponin was mildly elevated and ended up trending down. A TTE was planned to evaluate for structural abnormality and plans were to follow her hemoglobin closely and transfuse if below 8. By the morning of 12/31/2018, hemoglobin was 7.8 and she was transfused 2 units of PRBCs. The troponins continued to trend down. TTE was negative for any structural abnormality and it was felt that her troponin increase was likely demand ischemia in the setting of postoperative anemia. Her low potassium level was repleted and she was otherwise remaining stable. Dressing remained in place. Toes were mobile and neurovascularly intact. Calves were soft, nontender and pain was well controlled and she had no other complaints. She remained stable over the next several days. Hemoglobin post-transfusion was 11.2, trended slightly down, but then remained around 11 prior to discharge. She was progressing with her physical therapy and by 01/02/2019, she was progressing with her PT and was remaining medically stable. It was felt that her multiple episodes of fainting or syncopal episodes were vasovagal due to anemia. [facility] hospitalist service saw the patient prior to discharge and felt she was medically suitable for discharge to home and she was thusly discharged on 01/02/2019. For further review, please see chart. LABORATORY AND X-RAY DATA: As per chart. DISCHARGE INSTRUCTIONS: The patient was discharged home in satisfactory condition on 01/02/2019. DIET: Regular. ACTIVITY: Follow [facility]IS[facility] instruction sheets and special care instructions as noted. Follow up with Dr. Yap in 2 weeks. The patient to call for appointment if one has not been made for you. Follow up with your primary care physician that week concerning the use of your hydrochlorothiazide and monitoring labs. DISCHARGE MEDICATIONS: Acetaminophen 1000 mg p.o. q.8 hours, aspirin 81 mg p.o. b.i.d., oxycodone 5 mg p.o. q.4 hours p.r.n. Resume home meds as listed. Stop taking naproxen and tramadol.
== END 2019-01-02 11:10 | disposition home health service (06) | DRG 470 ==
LOC: ASU 06:38 → 3E 11:48 → 2E 12-30 10:59 → 3E 01-01 13:24